=== PATIENT | male | born 1965 | race Caucasian/White ===

== ENCOUNTER 2018-12-10 12:02 | Day surgery (SDC) | payer BC ==
[2018-12-10] VITALS (12 sets, daily range): BP systolic 133–171; BP diastolic 71–122; PULSE 62–74; RESP 14–30; Ht 177.8 cm; Wt 127.6 kg
[~2018-12-10] VITALS: Ht 177.8 cm; Wt 127.6 kg
[2018-12-10] MEDS ORDERED: METH-417 PO (12:42)
[2018-12-10] MEDS ORDERED: METO-429 PO (12:43)
[2018-12-10] MEDS ORDERED: GABA300C16 PO (12:43)
[2018-12-10] MEDS ORDERED: ASPI81TA52 PO (12:44)
[2018-12-10] MEDS ORDERED: SITA100T11 PO (12:44)
[2018-12-10] MEDS ORDERED: ATOR40TA68 PO (12:44)
--- NOTE | 2018-12-10 14:11 | PREAC ---
Date/Time of Note Date/Time of Note DATE: 12/10/18 TIME: 14:10 Anesthesia Eval and Record Evaluation Time Pre-Procedure Interview DATE: 12/10/18 TIME: 14:10 Age 53 Sex male NPO: 8 hrs Preoperative diagnosis lumbar radiculopathy Planned procedure spinal pain pump replacement Past Medical History Past Medical History: Includes Cardio: HTN, Dyslipidemia Neuro: Other (chronic pain) GI: Morbid obesity Surgery & Anesthesia Issues No known issue Meds Anticoagulation: No Beta Magdaleno within 24 hr: No Reason Beta Magdaleno not given: Pt. not on B-Magdaleno Reported Medications Sitagliptin* (Januvia*) 100 Mg Tablet, 100 MG PO DAILY, #30 TAB 12/10/18 Aspirin (Low Dose Aspirin) 81 Mg Tablet.dr, 81 MG PO DAILY, #30 TAB 12/10/18 Atorvastatin* (Atorvastatin*) 40 Mg Tablet, 40 MG PO QHS, #30 TAB 12/10/18 Gabapentin* (Gabapentin*) 300 Mg Capsule, 300 MG PO TID, #90 CAP 12/10/18 Metoprolol Tartrate* (Lopressor*) 50 Mg Tab, 50 MG PO BID, #60 TAB 12/10/18 Methadone Hcl* (Methadone*) 5 Mg Tab, 5 MG PO DAILY, TAB 12/10/18 Meds reviewed: Yes Allergies Coded Allergies: amlodipine (Unverified Allergy, Unknown, 12/10/18) Allergies Reviewed: Yes Labs/Studies Labs Reviewed: Reviewed by anesthesiologist Result Diagram: 12/10/18 1335 12/10/18 1335 Laboratory Tests 12/10/18 13:35 test: N/A Pre-procedure Exam Last vitals Vital Signs Date Temp Pulse Resp B/P (MAP) Pulse Ox O2 O2 Flow FiO2 Time Delivery Rate 12/10/18 95.7 67 18 169/85 97 Room Air 13:44 (113) Airway: Adequate mouth opening, Adequate thyromental dist Mallampati: Mallampati II Teeth: Normal Lung: Normal Heart: Normal ASA Physical Status ASA physical status: 3 Emergency: None Planned Anesthetic General/MAC: Mask Planned Pain Management Parenteral pain med, Local by surgeon Pre-operative Attestations Prior to commencing anesthesia and surgery, the patient was re-evaluated, there was verification of: *The patient's identity *The results of appropriate recent lab work and preoperative vital signs *The above evaluation not changing prior to induction *Anesthetic plan, risk benefits, alternative and complications discussed with patient/family; questions answered; patient/family understands, accepts and wishes to proceed. AAYUSH MEZA MD Dec 10, 2018 14:11
--- NOTE | 2018-12-10 14:13 | HPN ---
Date/Time of Note Date/Time of Note DATE: 12/10/18 TIME: 14:13 Interval H&P Admission Note Pt. seen H&P reviewed: No system changes EDUARDA ZIMMERMAN MD Dec 10, 2018 14:13
[2018-12-10] MEDS ORDERED: BUPIVACAINE 0.25% (MPF) 30 ML INJ ONE (14:20)
[2018-12-10] MEDS ORDERED: LIDOCAINE 1% (MPF) 30 ML INJ ONE (14:20)
[2018-12-10] MEDS ORDERED: PROPOFOL 20 ML ONE ×4 (14:29→17:03)
[2018-12-10] MEDS ORDERED: MIDAZOLAM 1 MG/ML 2 ML INJ ONE (14:29)
[2018-12-10] MEDS ORDERED: LIDOCAINE 2% (SDV) 5 ML INJ ONE (14:29)
[2018-12-10] MEDS ORDERED: DIPHENHYDRAMINE 50 MG INJ IV PRN (14:30)
[2018-12-10] MEDS ORDERED: ONDANSETRON 4 MG INJ IV PRN (14:30)
[2018-12-10] MEDS ORDERED: PROCHLORPERAZINE 10 MG INJ IV PRN (14:30)
[2018-12-10] MEDS ORDERED: OXYCODONE/ACETAMINOPHEN (5/325) TAB PO PRN (14:30)
[2018-12-10] MEDS ORDERED: HYDROmorphONE 1 MG/5 ML IV SYRINGE IV PRN ×3 (14:30)
[2018-12-10] MEDS ORDERED: MEPERIDINE 25 MG INJ IV PRN (14:30)
[2018-12-10] MEDS ORDERED: FENTAnyl 50 MCG/ML VIAL IV PRN (14:30)
[2018-12-10] MEDS ORDERED: FENTAnyl 50 MCG/ML VIAL ONE (14:35)
[2018-12-10] MEDS ORDERED: CEFAZOLIN 1 GM INJ ONE (14:40)
[2018-12-10] MEDS ORDERED: HYDROmorphONE 2 MG/ML SYG ONE (16:41)
[2018-12-10] MEDS ORDERED: PROPOFOL 100 ML ONE (16:42)
--- NOTE | 2018-12-10 17:56 | PAC ---
Date/Time of Note Date/Time of Note DATE: 12/10/18 TIME: 17:56 Post-Anesthesia Notes Post-Anesthesia Note Last documented vital signs Vital Signs Date Temp Pulse Resp B/P (MAP) Pulse Ox O2 O2 Flow FiO2 Time Delivery Rate 12/10/18 95.7 67 18 169/85 97 Room Air 13:44 (113) Activity: WNL Respiratory function: WNL Cardiovascular function: WNL Mental status: Baseline Pain reasonably controlled: Yes Hydration appropriate: Yes Nausea/Vomiting absent: Yes Comments BP: 140/78 HR: 71 RR: 15 T: 98 SaO2: 98% AAYUSH MEZA MD Dec 10, 2018 17:56
--- NOTE | 2018-12-10 18:25 | SIPON ---
Date/Time of Note Date/Time of Note DATE: 12/10/18 TIME: 18:21 Operative Report Preoperative Diagnosis Post laminectomy syndrome, lumbar radiculopathy, MICHEL expiration Postoperative Diagnosis Post laminectomy syndrome, lumbar radiculopathy, MICHEL expiration Operation/Procedure Performed MICHEL revision and replacement Surgeon see signature line virtual office assistant none Anesthesia: MAC Estimated blood loss: 10 - 50 ml's Transfusion Required none Specimen Old MICHEL pump Grafts/Implants none Complications none EDUARDA ZIMMERMAN MD Dec 10, 2018 18:25
[2018-12-10] MEDS ORDERED: DOCUSATE SODIUM 100 MG CAP PO ONE (18:30)
--- NOTE | 2018-12-10 18:52 | OPR ---
Date/Time of Note Date/Time of Note DATE: 12/10/18 TIME: 18:32 Operative Report Procedure Date: Dec 10, 2018 Preoperative Diagnosis Postlaminectomy syndrome, lumbar radiculopathy, MICHEL revision and replacement. Postoperative Diagnosis Postlaminectomy syndrome, lumbar radiculopathy, MICHEL revision and replacement. Operation/Procedure Performed 1. Old Drug administration system take out, synchroMed pump 2. Placement of new drug administration system, synchroMed pump 3. Tunneling of SynchroMed infusion pump catheter 4. Anchoring of the intrathecal catheter and connecting of the right lower quadrant SynchroMed pump catheter to the intrathecal catheter. Surgeon see signature line Graduate Engineer none Anesthesia Type: MAC Anesthesiologist: AAYUSH MEZA MD Estimated Blood Loss: 10 - 50 ml's Transfusion none Specimen old pump Grafts/Implants none Tubes/Drains none Complications none Pt Condition Post Procedure: stable Disposition: PACU Procedure Description Consent was obtained and patient was transfer to OR bed. 3gm ancef was given IVPB. Time out was done. Under anesthesia, the patient was placed in a left lateral decubitus position. The patient was prepped and draped in a sterile manner. Incision on old pump was made and old pump was taken out. The old cather was tied twice and tied again with 2 2-0 silk suture. Another incision was made at low back. The intrathecal catheter was placed with help of fluoroscopy. Tip at midline T8 in the middle. Lateral fluoroscopy showed it located at posterior space of spinal canal. A pursestring suture of 2-0 Silk was placed around the needle in the paraspinous muscle. The needle was withdrawn. The pursestring suture was tied to snug the tissues around the catheter and prevent cerebrospinal fluid leak. The catheter demonstrated free flow of cerebrospinal fluid throughout the procedure. The catheter was anchored to the paraspinous muscle with an anchoring device using interrupted sutures of 2-0 Silk. Antibiotic irrigation and antibiotic soak sponge were placed into the wound, and the catheter was clamped to prevent persistent leakage of cerebrospinal fluid. A tunneling device was then passed through the subcutaneous tissue from the back incision to the abdominal incision, and the SynchroMed pump catheter was placed to the tunneling device. The tunneling device was then removed leaving the SynchroMed pump catheter extending from the anterior abdominal wall incision to the posterior back incision. The intrathecal catheter was connected to SynchroMed connecting catheter. Good CSF was then demonstrated flowing through the SynchroMed pump catheter. The SynchroMed pump connecting catheter was connected to the SynchroMed pump and locked in place. Excess catheter was coiled and placed behind the pump. The pump was placed into the subcutaneous pocket on the anterior abdominal wall. The subcutaneous tissues were irrigated with antibiotic irrigation. The abdominal pocket was closed with interrupted 2--0 silk. The subcutaneous tissue of both wounds was closed with interrupted suture of 2-0 Vicryl. The skin of both wounds was closed with 4-0 monocryl. Dermabond were applied, and then 4x4 and tegaderm was placed on top of both incisions. The patient was awake and taken to the recovery room. The patient tolerated the procedure well and was stable at the completion of the procedure. All sponge and lap, needle and instrument counts were correct at the completion of the procedure. EDUARDA ZIMMERMAN MD Dec 10, 2018 18:47
== END 2018-12-10 19:04 | disposition home or self-care (01) ==
LOC: SDS 12:02
PROVIDERS: ATTEND Anesthesiology
DX: M96.1 Postlaminectomy syndrome, not elsewhere classified (principal); M54.16 Radiculopathy, lumbar region; I10 Essential (primary) hypertension; E11.9 Type 2 diabetes mellitus without complications
CPT/HCPCS: 62362; 72110; 80048; 82962; 85025; 85610; 85730; 88300; J0690; J1170; J2250; J3010